=== PATIENT | male | born 1975 | race Caucasian/White ===

== ENCOUNTER 2021-11-23 15:18 | Outpatient (REF) | payer MEDICARE, MEDICAID, SELFPAY ==
[2021-11-23 18:12] LABS: Hematocrit 45.6 % (42.0-52.0); Mean Corpuscular HGB Conc 32.9 g/dl (31.0-36.0); Mean Corpuscular Hemoglobin 30.4 pg (27.0-33.0); Mean Corpuscular Volume 92.3 fL (80.0-98.0); Mean Platelet Volume 9.5 fL (9.4-12.4); Platelet Count 345 X10*3/uL (160-400); Red Blood Count 4.94 X10*6/uL (4.60-5.80); Red Cell Distribution Width 12.9 % (11.0-16.0); White Blood Count 8.1 X10*3/uL (4.8-10.8)
[2021-11-23 18:20] LABS: Alanine Aminotransferase 35 U/L (0-40); Albumin Level 4.8 g/dL (3.5-5.0); Alkaline Phosphatase 110 U/L (39-117); Anion Gap 12 (12-20); Aspartate Amino Transferase 22 U/L (5-37); Bilirubin Total 0.4 mg/dL (0.0-1.0); Blood Urea Nitrogen 17 mg/dL (9-16); Calcium 10.6 mg/dL (8.4-10.2); Carbon Dioxide 28 mmol/L (22-29); Chloride 103 mmol/L (96-108); Estimated Glomerular Filt Rate > 60; Glucose Random 87 mg/dL (60-115); Potassium 4.2 mmol/L (3.3-5.1); Sodium 139 mmol/L (135-145); Total Protein 7.7 g/dL (6.5-8.0)
[2021-11-23 18:36] LABS: Thyroid Stimulating Hormone 1.57 uIU/mL (0.32-4.0); Vitamin D 25-OH Total 30.5 ng/mL (>30)
[2021-11-23 18:54] LABS: Folate 13.1 ng/mL (> or = 4.0); Vitamin B12 488 pg/mL (200-900)
[2021-11-28 09:52] LABS: Testosterone, Total 437 ng/dL (250-1100)
== END 2021-11-23 15:19 | disposition home or self-care (01) ==
LOC: HO.MANLDS 15:18
PROVIDERS: PCP Internal Medicine; Visit Provider Internal Medicine
DX: F31.9 Bipolar disorder, unspecified (principal); R53.83 Other fatigue; Z13.29 Encounter for screening for other suspected endocrine disorder
CPT/HCPCS: 36415; 80053; 82306; 82607; 82746; 84403; 84443; 85027